=== PATIENT | female | born 1985 | race Caucasian/White ===

== ENCOUNTER 2017-01-21 16:00 | Outpatient (CLI) | payer BC ==
--- NOTE | 2017-01-21 16:49 | DIAGNOSTIC IMAGING REPORT ---
PROCEDURE: XR HIP BILATERAL INDICATION: HIP JOINT PAIN LEFT TECHNIQUE: AP view of the pelvis and hips with lateral views of the bilateral hips. COMPARISON: None. FINDINGS: RIGHT HIP: Osseous structures and joint spaces are normal. LEFT HIP: Osseous structures and joint spaces are normal. PELVIS: Osseous pelvis is normal. IMPRESSION: 1. Negative pelvis and bilateral hips.
== END 2017-01-21 23:00 ==
LOC: XR SRH 16:00
DX: M25.552 Pain in left hip (principal); M25.551 Pain in right hip